=== PATIENT | female | born 1995 | race Caucasian/White ===

== ENCOUNTER 2023-01-24 11:14 | Day surgery (SDC) | payer BC ==
[2023-01-24] MEDS ORDERED: IRON SUCROSE INJECTION 200 MG in SODIUM CHLORIDE 100 ML IVPB ONE (12:00)
[2023-01-24 16:59] VITALS: BP 96/60; PULSE 90; RESP 18; TEMP 98.7
== END 2023-01-24 16:50 | disposition home or self-care (01) ==
LOC: FINFUSION 11:14 → FM/S 11:20 → FINFUSION 16:50
PROVIDERS: ATTEND Family Medicine
PROC: 3E033GC Introduction of Other Therapeutic Substance into Peripheral Vein, Percutaneous Approach (ICD-10-PCS; principal; 2023-01-24)
DX: D50.9 Iron deficiency anemia, unspecified (principal)
CPT/HCPCS: 96365; J1756

== ENCOUNTER 2023-01-31 11:01 | Day surgery (SDC) | payer BC ==
[2023-01-31] MEDS ORDERED: IRON SUCROSE INJECTION 200 MG in SODIUM CHLORIDE 100 ML IVPB ONE (12:15)
[2023-01-31 13:10] VITALS: BP 110/75; PULSE 100; RESP 18; TEMP 98.3
== END 2023-01-31 13:11 | disposition home or self-care (01) ==
LOC: FINFUSION 11:01 → FM/S 11:02 → FINFUSION 13:11
PROVIDERS: ATTEND Family Medicine
PROC: 3E033GC Introduction of Other Therapeutic Substance into Peripheral Vein, Percutaneous Approach (ICD-10-PCS; principal; 2023-01-31)
DX: D50.9 Iron deficiency anemia, unspecified (principal)
CPT/HCPCS: 96365; J1756